=== PATIENT | male | born 1975 | race Caucasian/White ===

== ENCOUNTER 2019-09-06 20:03 | Inpatient (IN) | payer MEDICARE, OTHER ==
[~2019-09-06] VITALS: Ht 175.3 cm; Wt 70.8 kg
--- NOTE | 2019-09-06 20:03 | NUR ---
BIB EMS FROM [facility] C/O SEIZURE. PER EMT, PT HAD SEIZURE X2 ENROUTE. PER REPORT, PATIENT WAS GIVEN ATIVAN 1MG PO @ 1900. TO ER BED 5, PLACED ON SEIZURE PRECAUTION. HOOKED TO MONITOR, AWAITING MD HINTON.
--- NOTE | 2019-09-06 20:20 | NUR ---
DR EMERY AT BEDSIDE
[2019-09-06 20:32] LABS: BASOPHILS # (AUTO) 0.1 /CMM (0.0-0.2); BASOPHILS % (AUTO) 1.3 % (0.0-2.0); EOSINOPHILS % (AUTO) 3.2 % (0.0-6.0); HEMATOCRIT 39 % (39-51); HEMOGLOBIN 13.5 g/dL (13.5-17.5); LYMPHOCYTES # (AUTO) 2.2 /CMM (0.8-4.8); LYMPHOCYTES % (AUTO) 30.9 % (20.0-44.0); MEAN CORPUSCULAR HGB CONC 34 g/dl (31.0-36.0); MEAN CORPUSCULAR VOLUME 97 fL (80-96); MONOCYTES # (AUTO) 0.6 /CMM (0.1-1.30); MONOCYTES % (AUTO) 8.2 % (2.0-12.0); NEUTROPHILS % (AUTO) 56.4 % (43.0-81.0); PLATELET COUNT (AUTO) 290 /CMM (150-450); RED BLOOD CELL COUNT(AUTO) 4.04 MIL/uL (4.5-6.0); WHITE BLOOD COUNT (AUTO) 7.2 K/uL (4.3-11.0)
[2019-09-06 20:39] LABS: CALCIUM, SERUM 8.4 mg/dL (8.5-10.1); CREATININE 0.9 mg/dL (0.6-1.3); POTASSIUM 3.7 mmol/L (3.5-5.1)
--- NOTE | 2019-09-06 20:44 | NUR ---
URINE SAMPLE COLLECTED VIA STRAIGHT CATHETER. SENT SAMPLE TO LAB.
[2019-09-06 20:45] LABS: ALBUMIN 3.6 g/dL (3.4-5.0); BILIRUBIN,TOTAL 0.2 mg/dL (0.2-1.0); TOTAL PROTEIN, SERUM 6.6 g/dL (6.4-8.2)
--- NOTE | 2019-09-06 20:53 | NUR ---
PT TAKEN TO RADIOLOGY VIA JIM
--- NOTE | 2019-09-06 21:26 | NUR ---
NOTED W SEIZURES THAT LASTED FOR 40SECONDS. PATIENT SAFETY PRIORITIZED, ON O2 VIA NASAL CANNULA AT 4LPM. VS TAKEN AND RECORDED. AWARE.
--- NOTE | 2019-09-06 21:43 | NUR ---
CALLED [facility], PAGED NIEVES RUIZ FOR ADMISSION
[2019-09-06] MEDS ORDERED: LEVETIRACETAM (500MG) 500 MG/5 ML VIAL IV ONE (22:06)
--- NOTE | 2019-09-06 22:13 | NUR ---
CALLED NURSING SUP FOR TELE BED
[2019-09-06] MEDS: LEVETIRACETAM (500MG) 1,000 MG in IV NS 0.9% 100 ML IV SCH (22:16)
--- NOTE | 2019-09-06 22:30 | NUR ---
SPOKE WITH VANESSA FROM [facility] AND INFORMED PT WILL BE ADMITTED
--- NOTE | 2019-09-06 22:57 | NUR ---
BED ASSIGNMENT 327-2
--- NOTE | 2019-09-06 23:09 | NUR ---
REPORT GIVEN TO TREY OF TELE UNIT
--- NOTE | 2019-09-06 23:20 | NUR ---
patient admitted to telemetry to [facility] for dx of seizures. report given earlier by ally fan from er. patient placed in room 327-2. tele placed. patient sent up by barry and transferred to bed. patient had one seizure in er and was given keppra ivpb x1 dose. patient has been having seizures for last 3 days consistantly and [facility] but patient had seizure enroute to hospital and was brought to [facility]. patient oriented to room. patient axox3 patien thas motor function to right and left arm but patient states he has hx of spianl cord injury unable to ambulate.
[2019-09-06] MEDS ORDERED: ASPI-1152 PO (23:54)
[2019-09-07] VITALS (8 sets, daily range): BP systolic 107–150; BP diastolic 59–78
[2019-09-07] MEDS ORDERED: CARB-93 PO (00:06)
[2019-09-07] MEDS ORDERED: LACO200T2 PO (00:06)
[2019-09-07] MEDS ORDERED: PRAZ1CAP5 PO (00:06)
[2019-09-07] MEDS ORDERED: AMLO5TAB4 PO (00:06)
[2019-09-07] MEDS ORDERED: GABA300C PO (00:06)
[2019-09-07] MEDS ORDERED: OXCA300T4 PO (00:06)
[2019-09-07] MEDS ORDERED: FOLI1TAB16 PO (00:06)
[2019-09-07] MEDS ORDERED: ATOR20TA PO (00:06)
[2019-09-07] MEDS ORDERED: PANT40TA2 PO (00:06)
[2019-09-07] MEDS ORDERED: FINA5TAB3 PO (00:06)
[2019-09-07] MEDS ORDERED: TRAM50TA PO (00:06)
[2019-09-07] MEDS ORDERED: ALBU18HF2 INH (00:08)
[2019-09-07] MEDS ORDERED: FERR325T23 PO (00:14)
[2019-09-07] MEDS ORDERED: SENN-168 PO (00:14)
[2019-09-07] MEDS ORDERED: DOCU100C36 PO (00:14)
--- NOTE | 2019-09-07 05:59 | NUR ---
F/U WITH DR. ROLLINS ABOUT ADMISSION ORDERS. DR. ROLLINS CONTACTED ABOUT ADMISSION ORDERS. STATES HE WILL HAVE THEM IN BEFORE 7AM. NEW ORDERS FOR DIET RECIEVED.
--- NOTE | 2019-09-07 06:00 | NUR ---
RN PM CLOSING NOTE. PATIENT IN BED RESTING COMFORTABLY. AXOX3 PATIENT DENIES PAIN. SINCE ADMISSION PATIENT HAS NOT HAD ANY SEIZURE ACTIVIY. SEIZURE PRECAUTIONS IN PLACE. SCD APPLIED TO BILAT LOWER EXTREMETIES. REPOSITINED FOR COMFORT. BED DOWN AND LOCKED BED ALLARM ACTIVE. WILL CONT TO MONITOR.
[2019-09-07] MEDS ORDERED: ACETAMINOPHEN 325 MG TABLET PO PRN (06:30)
[2019-09-07] MEDS ORDERED: ONDANSETRON HCL/PF 4 MG/2 ML VIAL IVP PRN (06:30)
[2019-09-07 07:06] LABS: BASOPHILS # (AUTO) 0.1 /CMM (0.0-0.2); BASOPHILS % (AUTO) 1.1 % (0.0-2.0); EOSINOPHILS % (AUTO) 2.7 % (0.0-6.0); HEMATOCRIT 41 % (39-51); HEMOGLOBIN 14.2 g/dL (13.5-17.5); LYMPHOCYTES # (AUTO) 1.6 /CMM (0.8-4.8); LYMPHOCYTES % (AUTO) 15.4 % (20.0-44.0); MEAN CORPUSCULAR HGB CONC 34 g/dl (31.0-36.0); MEAN CORPUSCULAR VOLUME 97 fL (80-96); MONOCYTES # (AUTO) 0.5 /CMM (0.1-1.30); MONOCYTES % (AUTO) 5.2 % (2.0-12.0); NEUTROPHILS % (AUTO) 75.6 % (43.0-81.0); PLATELET COUNT (AUTO) 285 /CMM (150-450); RED BLOOD CELL COUNT(AUTO) 4.28 MIL/uL (4.5-6.0); WHITE BLOOD COUNT (AUTO) 10.5 K/uL (4.3-11.0)
[2019-09-07 07:25] LABS: CALCIUM, SERUM 8.5 mg/dL (8.5-10.1); CREATININE 0.8 mg/dL (0.6-1.3); POTASSIUM 3.8 mmol/L (3.5-5.1)
[2019-09-07 07:30] LABS: ALBUMIN 3.3 g/dL (3.4-5.0); BILIRUBIN,TOTAL 0.2 mg/dL (0.2-1.0); MAGNESIUM 1.9 mg/dL (1.8-2.4); PHOSPHORUS 3.5 mg/dL (2.5-4.9); TOTAL PROTEIN, SERUM 6.4 g/dL (6.4-8.2)
[2019-09-07 07:31] LABS: THYROID STIMULATING HORMONE 1.666 uIU/mL (0.358-3.74)
--- NOTE | 2019-09-07 07:57 | NUR ---
MS RN OPENING NOTE PATIENT RECEIVED SLEEPING IN BED. A/O X3. PATIENT SHOWS NO SIGNS OF ACUTE DISTRESS AT THE MOMENT. PATIENT ON SEIZURE PRECAUTIONS SIDE RAILS X3 PADDED IN UPRIGHT POSITION. BED IS IN LOWEST POSITION. CALL LIGHT IS WITHIN REACH AND PATIENT IS AWARE OF HOW TO CALL FOR ASSISTANCE WHEN NEEDED. WILL CONTINUE TO MONITOR.
[2019-09-07] MEDS: GABAPENTIN 300 MG CAPSULE PO SCH ×3 (08:37→17:11)
[2019-09-07] MEDS: FERROUS SULFATE (325 MG) 325 MG/TAB TABLET PO SCH (08:37)
[2019-09-07] MEDS: PANTOPRAZOLE 40 MG TABLET.DR PO SCH (08:38)
[2019-09-07] MEDS: FOLIC ACID 1 MG TABLET PO SCH (08:39)
[2019-09-07] MEDS: CARBIDOPA/LEVODOPA 25/100 MG 1 UDTAB PO SCH ×3 (08:39→17:12)
[2019-09-07] MEDS: ASPIRIN EC 81 MG TABLET.DR PO SCH (08:40)
[2019-09-07] MEDS: TRAMADOL HCL 50 MG TABLET PO PRN ×2 (08:40→17:11)
[2019-09-07] MEDS: FINASTERIDE (5 MG) 5 MG TABLET PO SCH (08:40)
[2019-09-07] MEDS: OXCARBAZEPINE 150 MG TABLET PO SCH ×2 (08:44→21:36)
[2019-09-07] MEDS: LACOSAMIDE 50 MG TABLET PO SCH ×2 (08:44→21:36)
[2019-09-07] MEDS ORDERED: DOCUSATE SODIUM 100 MG CAPSULE PO SCH (09:00)
--- NOTE | 2019-09-07 09:00 | NUR ---
MS/RN Medications Morning medications administered, crushed with apple sauce. Will ask MD to change colace to liquid.
[2019-09-07] MEDS: LEVETIRACETAM (500MG) 1,000 MG in IV NS 0.9% 100 ML IV SCH ×2 (10:31→23:07)
[2019-09-07] MEDS ORDERED: ALBUTEROL FS 2.5 MG/3 ML VIAL.NEB NEB PRN (13:30)
[2019-09-07] MEDS: DOCUSATE SODIUM LIQ 100 MG/10 ML UDC PO SCH (17:11)
[2019-09-07] MEDS: ATORVASTATIN 10 MG TABLET PO SCH (17:14)
[2019-09-07] MEDS: PRAZOSIN HCL 1 MG CAPSULE PO SCH (17:15)
--- NOTE | 2019-09-07 18:22 | NUR ---
MS RN CLOSING NOTE PATIENT IS RESTING IN 327-1. PATIENT MOVED DUE TO NEW AIR LOSS MATTRESS. NO ACUTE DISTRESS NOTED AT THIS TIME PATIENT IS SATURATING >95% ON 3L NC. IV IS CLEAN AND PATENT. ALL DUE MEDS GIVEN AND LAST DOSE TRAMADOL GIVEN AT 1711. BED IS IN LOWEST POSITION, CALL LIGHT IS WITHIN REACH, PADDED SIDE RAILS X3 IN UPRIGHT POSITION ON SEIZURE PRECAUTIONS. NO SEIZURE ACTIVITY THIS SHIFT. STILL NEED TO OBTAIN URINE. WILL ENDORSE TO CREDIT ANALYSIS MANAGER.
--- NOTE | 2019-09-07 19:55 | NUR ---
RN NOTES RECEIVED PATIENT ASLEEP, NO ACUTE DISTRESS NOTED AT THIS TIME PATIENT IS SATURATING >95% ON 3L NC. IV IS CLEAN AND PATENT. SAFETY MEASURES IN PLACE, KEPT WARM, DRY AND COMFORTABLE, BED IS IN LOWEST POSITION, CALL LIGHT IS WITHIN REACH, PADDED SIDE RAILS X3 IN UPRIGHT POSITION ON SEIZURE PRECAUTIONS. NEED TO OBTAIN URINE. WILL INFORM PATIENT ONCE, WILL CONTINUE TO MONITOR ACCORDINGLY.
[2019-09-07] MEDS: SENNOSIDES 8.6 MG TABLET PO SCH (21:36)
[2019-09-07] MEDS ORDERED: LEVETIRACETAM (500MG) 500 MG/5 ML VIAL IV ONE (22:58)
[2019-09-08 00:05] VITALS: BP 112/60
--- NOTE | 2019-09-08 00:10 | NUR ---
RN NOTES URINE SAMPLE COLLECTED VIA STRAIGHT CATHETER. SPECIMEN SENT TO LAB.
[2019-09-08] MEDS: TRAMADOL HCL 50 MG TABLET PO PRN ×2 (00:16→13:58)
--- NOTE | 2019-09-08 00:17 | NUR ---
RN NOTES PATIENT COMPLAINTS OF BACK PAIN 5/10 ULTRAM (TRAMADOL) 50 MG GIVEN PRN ORDER FOR MODERATE PAIN. ASPIRATION PRECAUTION OBSERVED. SEIZURE PRECAUTION EMPHASIZED. WILL MONITOR ACCORDINGLY.
--- NOTE | 2019-09-08 00:40 | NUR ---
RN NOTES NOTED WITH SEIZURE ACTIVITY AROUND 0031 09/08/19. SEIZURE PRECAUTIONS EMPHASIZED. SAFETY MEASURES MAINTAINED. PLACED PATIENT ON HIS SIDE, ASPIRATION PRECAUTIONS OBSERVED. ATIVAN IV GIVEN PER MD ORDERED FOR SEIZURE ACTIVITY, VITAL SIGNS TAKEN AND RECORDED, BP 113/59, HR 87, RR 21, SATING 97%, O2 3 - 5LPM BLOOD SUGAR 109, WILL KEEP ON MONITORING.
[2019-09-08] MEDS: LORAZEPAM INJ 2 MG/ML VIAL IV PRN ×2 (01:03→18:04)
[2019-09-08 04:55] VITALS: BP 113/59
--- NOTE | 2019-09-08 06:50 | NUR ---
RN NOTES ALL NEEDS ATTENDED AND MET, ABLE TO REST AND SLEPT AT INTERVALS, NO SEIZURE EPISODE AFTER THE FIRST SEIZURE ACTIVITY.SAFETY MEASURES IN PLACE. TELE READS SINUS RHYTHM. WILL ENDORSE TO AM NURSE FOR CONTINUITY OF CARE.
[2019-09-08 07:08] LABS: BASOPHILS # (AUTO) 0.1 /CMM (0.0-0.2); BASOPHILS % (AUTO) 0.7 % (0.0-2.0); HEMATOCRIT 41 % (39-51); HEMOGLOBIN 13.8 g/dL (13.5-17.5); LYMPHOCYTES # (AUTO) 2.1 /CMM (0.8-4.8); LYMPHOCYTES % (AUTO) 20.7 % (20.0-44.0); MEAN CORPUSCULAR HGB CONC 34 g/dl (31.0-36.0); MEAN CORPUSCULAR VOLUME 97 fL (80-96); MONOCYTES # (AUTO) 0.5 /CMM (0.1-1.30); MONOCYTES % (AUTO) 5.1 % (2.0-12.0); NEUTROPHILS # (AUTO) 7.2 /CMM (1.8-8.9); NEUTROPHILS % (AUTO) 70.5 % (43.0-81.0); PLATELET COUNT (AUTO) 269 /CMM (150-450); RED BLOOD CELL COUNT(AUTO) 4.17 MIL/uL (4.5-6.0); WHITE BLOOD COUNT (AUTO) 10.2 K/uL (4.3-11.0)
[2019-09-08 07:11] LABS: CALCIUM, SERUM 8.5 mg/dL (8.5-10.1); CREATININE 0.8 mg/dL (0.6-1.3); POTASSIUM 4.1 mmol/L (3.5-5.1)
--- NOTE | 2019-09-08 07:38 | NUR ---
FARMER AND GRAZIER OPENING NOTE PATIENT RECEIVED SLEEPING IN BED A/O X3. SHOWING NO SIGNS OF ACUTE DISTRESS OR SOB AND SATURATING AT 99% 3L NC. IV ON RIGHT HAND IS CLEAN AND PATENT. PRODUCT SALES REPRESENTATIVE NURSE REPORTED PATIENT HAD SEIZURE FROM [id number]. WILL CONTINUE TO MONITOR. BED IS IN LOWEST POSITION, SIDE RAILS X2 PADDED IN UPRIGHT POSITION. PATIENT IS ON SEIZURE PRECAUTIONS.
[2019-09-08 08:00] VITALS: BP_SYST 119; BP_SYST 96; BP_DIAS 62; BP_DIAS 67
[2019-09-08] MEDS: DOCUSATE SODIUM LIQ 100 MG/10 ML UDC PO SCH ×2 (08:37→16:46)
[2019-09-08] MEDS: CARBIDOPA/LEVODOPA 25/100 MG 1 UDTAB PO SCH ×3 (08:37→16:46)
[2019-09-08] MEDS: ASPIRIN EC 81 MG TABLET.DR PO SCH (08:37)
[2019-09-08] MEDS: FERROUS SULFATE (325 MG) 325 MG/TAB TABLET PO SCH (08:37)
[2019-09-08] MEDS: OXCARBAZEPINE 150 MG TABLET PO SCH ×2 (08:38→23:31)
[2019-09-08] MEDS: FOLIC ACID 1 MG TABLET PO SCH (08:38)
[2019-09-08] MEDS: FINASTERIDE (5 MG) 5 MG TABLET PO SCH (08:38)
[2019-09-08] MEDS: GABAPENTIN 300 MG CAPSULE PO SCH ×3 (08:38→16:47)
[2019-09-08] MEDS: PANTOPRAZOLE 40 MG TABLET.DR PO SCH (08:45)
[2019-09-08 09:26] VITALS: BP 96/62
[2019-09-08] MEDS ORDERED: LEVETIRACETAM SOL (5 ML) 100 MG/ML UDC PO SCH ×3 (10:00→21:00)
[2019-09-08] MEDS ORDERED: LEVETIRACETAM (500MG) 1,000 MG in IV NS 0.9% 100 ML IV ONE (10:00)
[2019-09-08] MEDS: LACOSAMIDE 50 MG TABLET PO SCH ×2 (10:16→23:32)
[2019-09-08] MEDS ORDERED: ACET-868 PO (14:01)
[2019-09-08] MEDS ORDERED: LORA2VIA11 IM (14:01)
[2019-09-08] MEDS ORDERED: ONDA4TAB5 PO (14:01)
[2019-09-08] MEDS ORDERED: QUET200T PO (14:01)
[2019-09-08] MEDS ORDERED: BISA10SU11 RC (14:01)
[2019-09-08] MEDS ORDERED: NA P133E RC (14:01)
[2019-09-08] MEDS ORDERED: ESCI10TA PO (14:01)
[2019-09-08] MEDS ORDERED: MAGN400O6 PO (14:01)
[2019-09-08] MEDS ORDERED: HYDR-4384 PO (14:01)
[2019-09-08] MEDS ORDERED: MINERAL OIL 133 ML (PYXIS) 1 EA ENEMA RC PRN (14:30)
[2019-09-08] MEDS ORDERED: BISACODYL SUPP (10 MG) 10 MG/SUPP.RECT SUPP.RECT RC PRN (14:30)
[2019-09-08] MEDS ORDERED: MAGNESIUM HYDROXIDE 30 ML UDC PO PRN (14:30)
[2019-09-08] MEDS: ESCITALOPRAM OXALATE (10 MG) 10 MG TABLET PO SCH (14:43)
[2019-09-08 16:00] VITALS: BP 119/67
[2019-09-08] MEDS: HYDROCODONE/APAP 5/325MG 1 EACH TABLET PO PRN (16:46)
[2019-09-08] MEDS: QUETIAPINE FUMARATE 100 MG TABLET PO SCH (16:47)
[2019-09-08] MEDS: ATORVASTATIN 10 MG TABLET PO SCH (17:08)
[2019-09-08] MEDS: PRAZOSIN HCL 1 MG CAPSULE PO SCH (17:09)
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
--- NOTE | 2019-09-08 18:04 | NUR ---
PT WAS TELLING THE SECURITY THAT THE 4 MALE STAFF WERE HURTING HIM,STRIPPING HIM NAKED. PT STARTED HAVING SEIZURE LASTING FOR 4 MINS.WITH PADDED SIDERAILS AND CLOSELY MONITORED FOR SAFETY.4 MALE STAFF AND THE SECURITY STILL AT THE BEDSIDE.ATIVAN 1 MG IM GIVEN. PT CALMED DOWN AND WANTS TO EAT.EXPLAINED THAT HE CAN'T EAT DUE TO RISK OF ASPIRATING. WE CAN GIVE HIM SMALL ICE CHIPS BUT HE REFUSED.KEPT PT CLEAN AND DRY AND PLACED A NEW IV H/L TO LT AC.
--- NOTE | 2019-09-08 18:15 | NUR ---
PAGED DR ARMENTA AND AWAITING TO RETURN CALL.
--- NOTE | 2019-09-08 18:36 | NUR ---
DR ARMENTA RETURNED CALL AND MADE AWARE OF THE SEIZURE AND THE FAKE FALL INCIDENT.WITH NO INJURY NOTED.PT PROTECTED HIS FACE WITH HIS ARM FROM THE FALL. WITH ORDER FOR PSYCH EVAL.CALLED GPS AND SPOKE TO AYALA STATING THAT DR MEDINA HASN'T MADE ROUNDS YET FOR THIS EVENING.FAXED PT'S FACE SHEET AND REQUESTED FOR PSYCH CONSULT.
--- NOTE | 2019-09-08 20:00 | NUR ---
FOREST EXAMINER NOTES PATIENT AWAKE IN BED WITH NO DISTRESS NOTED. CALL LIGHT WITHIN REACH. PATIENT STATED HE WAS NOT HAPPY WITH THE STAFF OR DOCTORS AND STATED HE FIRED THE DAY SHIFT , RN , ASSEMBLER ENGINE. PATIENT REQUESTING TO BE DISCHARGED TO [facility] OR WILL SIGN AMA. PATIENT STATES HE HAS THE RIGHT TO PICK HIS DOCTORS AND NURSES. REINSTRUCTED PATIENT ON CURRENT POC. PATIENT THEN DEMANDED TO GO TO SMOKING AREA TO SMOKE A CIGARETTE, EXPLAINED TO PATIENT PER HOSPITAL POLICY HE WILL NEED TO BE ACCOMPANIED BY HIS ASSIGNED ASSEMBLER ENGINE BUT WILL NEED TO WAIT BECAUSE SHE IS CURRENTLY ASSISTING ANOTHER PATIENT. PATIENT THEN STATED "WELL IF I CAN'T GO NOW, I'M GOING TO FALL OUT OF MY BED." EXPLANATION OF RISKS/BENEFITS GIVEN. CHARGE NURSE MADE AWARE. PATIENT WITH NO C/O PAIN OR DISCOMFORT. PERIPHERAL LINE INTACT AND PATENT. BED IN LOW LOCK SETTING. BED ALARM ON AND FUNCTIONING PROPERLY. ROOM FREE OF CLUTTER AND BELONGINGS KEPT NEAR BEDSIDE. WILL CONTINUE TO MONITOR.
--- NOTE | 2019-09-08 21:00 | NUR ---
PATIENT BACK FROM SMOKING AREA, ASSISTED BY SECURITY AND ASSIGNED STORY EDITOR. PATIENT REFUSED TO GO BACK TO BED. PATIENT STATED IF HE WAS GIVEN SNACKS AND JUICE, HE WOULD BE COMPLIANT AND GO BACK TO BED. SNACKS AND JUICE GIVEN BUT PATIENT STILL REFUSED ALL MEDS DESPITE CONTINUED EXPLANATION OF RISKS/BENEFITS. PATIENT STATED HE HAD THE RIGHT TO REFUSE HIS CARE AND HAD THE RIGHT TO SIT IN HIT WHEELCHAIR. PATIENT RIGHTS WERE ACKNOWLEDGED BUT WAS ASKED TO STOP YELLING IN HALLWAYS. PATIENT BEGAN TO ESCALATE. SECURITY WAS CALLED TO UNIT BUT PATIENT STILL REFUSED TO CALM DOWN OR GO BACK TO HIS ROOM. PATIENT CURRENTLY AT STATION, SCREAMING AT STAFF ABOUT GOING BACK OUT TO SMOKE OR HE WILL HAVE ANOTHER SEIZURE. PATIENT AT STATION FOR CONTINUED MONITORING. Addendum: 09/09/19 at 0105 by ELIDA ADAME RN PATIENT CONTINUES TO YELL AT STATION, DEMANDING TO SIGN AMA. PATIENT SAID HE WILL WHEEL HIMSELF TO [facility].
--- NOTE | 2019-09-08 21:47 | NUR ---
PATIENT IN HALLWAY CURSING AND SCREAMING AT STAFF, REFUSING ALL NURSING CARE, AND MEDS. SPOKE WITH DR. ROLLINS WITH ORDER FOR PET TEAM EVAL.
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
--- NOTE | 2019-09-08 23:13 | NUR ---
WITH ORDER FOR ATIVAN 1MG IV X1 DOSE GIVEN FROM DR. MANJARREZ. PATIENT TOLERATED WELL. WILL CONTINUE TO MONITOR FOR EFFECTIVENESS
[2019-09-08] MEDS ORDERED: LORAZEPAM INJ 2 MG/ML VIAL IV ONE (23:30)
[2019-09-08] MEDS: SENNOSIDES 8.6 MG TABLET PO SCH (23:32)
[2019-09-09] VITALS: BP 107/62
[2019-09-09] MEDS ORDERED: LEVETIRACETAM (500MG) 1,500 MG in IV NS 0.9% 100 ML IV ONE ×2
--- NOTE | 2019-09-09 | NUR ---
PATIENT REFUSED PO KEPPRA AND ONLY WILLING TO TAKE IV DOSE. DR. ROLLINS MADE AWARE, KEPPRA 1500MG PO CHANGED TO IV. ORDER VERIFIED, NOTED, AND CARRIED OUT.
[2019-09-09] MEDS ORDERED: LEVETIRACETAM (500MG) 500 MG/5 ML VIAL IV ONE ×2 (01:20)
--- NOTE | 2019-09-09 06:36 | NUR ---
PATHOLOGY LAB TECHNICIAN NOTES PATIENT ASLEEP IN BED WITH NO DISTRESS NOTED. CALL LIGHT WITHIN REACH. PERIPHERAL LINE INTACT AND PATENT. NO FURTHER BEHAVIORAL PROBLEMS NOTED DURING SHIFT. NO C/O PAIN OR DISCOMFORT. NO EPISODES OF SEIZURE NOTED DURING SHIFT. BED IN LOW LOCK SETTING. ROOM FREE OF CLUTTER AND BELONGINGS KEPT NEAR BEDSIDE. BED ALARM ON AND FUNCTIONING PROPERLY. WILL ENDORSE TO ONCOMING SHIFT.
--- NOTE | 2019-09-09 07:45 | NUR ---
Tele/RN - AM Assessment Patient in bed awake, A/O x 4, denies pain at this time, on oxygen at 2lpm via NC, afebrile, no seizure activity noted, uncooperative with care and treatment, refused cardiac monitoring, EEG. Seen by Dr. Fraser (psych) for aggressive behavior and history of Schizo with no new order at this time. Saline lock on the LAC is patent, intact, with no signs of infiltration. Fall, aspiration and seizure precautions maintained. All needs attended. Will continue with current plan of care.
[2019-09-09] MEDS: PANTOPRAZOLE 40 MG TABLET.DR PO SCH (07:46)
[2019-09-09] MEDS: HYDROCODONE/APAP 5/325MG 1 EACH TABLET PO PRN (08:21)
[2019-09-09] MEDS: FERROUS SULFATE (325 MG) 325 MG/TAB TABLET PO SCH (08:21)
[2019-09-09] MEDS: GABAPENTIN 300 MG CAPSULE PO SCH ×2 (08:21→12:24)
[2019-09-09] MEDS: FOLIC ACID 1 MG TABLET PO SCH (08:21)
[2019-09-09] MEDS: QUETIAPINE FUMARATE 100 MG TABLET PO SCH (08:21)
[2019-09-09] MEDS: FINASTERIDE (5 MG) 5 MG TABLET PO SCH (08:21)
[2019-09-09] MEDS: ASPIRIN EC 81 MG TABLET.DR PO SCH (08:21)
[2019-09-09] MEDS: OXCARBAZEPINE 150 MG TABLET PO SCH (08:21)
[2019-09-09] MEDS: CARBIDOPA/LEVODOPA 25/100 MG 1 UDTAB PO SCH ×2 (08:21→12:24)
[2019-09-09] MEDS: LACOSAMIDE 50 MG TABLET PO SCH (08:22)
[2019-09-09] MEDS: ESCITALOPRAM OXALATE (10 MG) 10 MG TABLET PO SCH (08:22)
[2019-09-09] MEDS: DOCUSATE SODIUM LIQ 100 MG/10 ML UDC PO SCH (08:22)
[2019-09-09] MEDS ORDERED: LORAZEPAM INJ 2 MG/ML VIAL IV PRN (09:00)
[2019-09-09] MEDS ORDERED: LEVETIRACETAM (500MG) 1,500 MG in IV NS 0.9% 100 ML IV SCH (09:00)
[2019-09-09] MEDS: TRAMADOL HCL 50 MG TABLET PO PRN (10:57)
[2019-09-09] MEDS ORDERED: LEVE500T20 PO (11:53)
[2019-09-09 14:21] LABS: BASOPHILS % (AUTO) 0.4 % (0.0-2.0); EOSINOPHILS % (AUTO) 2.5 % (0.0-6.0); HEMATOCRIT 43 % (39-51); HEMOGLOBIN 14.8 g/dL (13.5-17.5); LYMPHOCYTES # (AUTO) 0.6 /CMM (0.8-4.8); LYMPHOCYTES % (AUTO) 7.4 % (20.0-44.0); MEAN CORPUSCULAR HGB CONC 34 g/dl (31.0-36.0); MEAN CORPUSCULAR VOLUME 97 fL (80-96); MONOCYTES # (AUTO) 0.4 /CMM (0.1-1.30); MONOCYTES % (AUTO) 4.6 % (2.0-12.0); NEUTROPHILS # (AUTO) 7.4 /CMM (1.8-8.9); NEUTROPHILS % (AUTO) 85.1 % (43.0-81.0); PLATELET COUNT (AUTO) 255 /CMM (150-450); RED BLOOD CELL COUNT(AUTO) 4.47 MIL/uL (4.5-6.0); WHITE BLOOD COUNT (AUTO) 8.7 K/uL (4.3-11.0)
[2019-09-09 14:36] LABS: CALCIUM, SERUM 8.3 mg/dL (8.5-10.1); CREATININE 0.8 mg/dL (0.6-1.3); POTASSIUM 3.7 mmol/L (3.5-5.1)
--- NOTE | 2019-09-09 16:10 | NUR ---
Tele/RN - Discharge Patient feeling better, A/O x 4, calm, cooperative, discharged to [facility] in stable condition. Reviewed discharge instructions with ANSON Chung ([phone]) and she verbalized full understanding and all questions answered to her satisfaction. All belongings with patient and he deny any missing items. VSS, denies pain, no seizure activity this shift, afebrile, no apparent distress seen. No fall/injury during hospital stay. Patient refused discharge photo, skin is intact. Heplock removed on the LAC with catheter tip intact, no redness, no swelling at the site. Discharge papers sent with ambulance crew. Endorsed accordingly.
== END 2019-09-09 16:00 | DRG 101 ==
LOC: ER 20:11 → TELE 23:03 → MED 09-07 16:06 → TELE 09-07 20:33
PROVIDERS: ADMIT Family Medicine; ATTEND Internal Medicine
DX: R56.9 Unspecified convulsions (principal); I69.351 Hemiplegia and hemiparesis following cerebral infarction affecting right dominant side; J44.9 Chronic obstructive pulmonary disease, unspecified; G20 Parkinson's disease; I25.10 Atherosclerotic heart disease of native coronary artery without angina pectoris; F17.210 Nicotine dependence, cigarettes, uncomplicated; F25.9 Schizoaffective disorder, unspecified; I10 Essential (primary) hypertension; K21.9 Gastro-esophageal reflux disease without esophagitis; Z66 Do not resuscitate; Z79.82 Long term (current) use of aspirin
CPT/HCPCS: 36415; 70450-TC; 71045-TC; 80048-TC; 80053-TC; 80061-TC; 80076-TC; 80177; 80305; 82542; 82962-TC; 83735-TC; 84100-TC; 84443-TC; 85025-TC; 87081-TC; 97112-TC; 97530-TC; 97535-TC; G0378; J1953; J2060; J7030; J7050

== ENCOUNTER 2019-09-14 22:04 | Inpatient (IN) | payer MEDICARE, OTHER ==
[~2019-09-14] VITALS: Ht 167.6 cm; Wt 78.9 kg
[~2019-09-14 22:04] MED LIST: ACET-868 PO; ALBU18HF2 INH; AMLO5TAB4 PO; ASPI-1152 PO; ATOR20TA PO; BISA10SU11 RC; CARB-93 PO; DOCU100C36 PO; ESCI10TA PO; FERR325T23 PO; FINA5TAB3 PO; FOLI1TAB16 PO; GABA300C PO; HYDR-4384 PO; LACO200T2 PO; LEVE500T20 PO; LORA2VIA11 IM; MAGN400O6 PO; NA P133E RC; ONDA4TAB5 PO; OXCA300T4 PO; PANT40TA2 PO; PRAZ1CAP5 PO; QUET200T PO; SENN-168 PO; TRAM50TA PO
[2019-09-14] MEDS ORDERED: LORAZEPAM INJ 2 MG/ML VIAL ONE (22:06)
--- NOTE | 2019-09-14 22:14 | NUR ---
"BIBPA. C/O "PER PA: ON ROUTE TO [facility]. PT HAD SEIZURE" PT RESPONSIVE TO PAIN. VSS AT THIS TIME." PT ON MONITOR, -SOB NOTED, VSS, PENDING MD HINTON
[2019-09-14] MEDS ORDERED: LEVETIRACETAM (500MG) 500 MG/5 ML VIAL IV ONE (22:24)
[2019-09-14] MEDS ORDERED: LORAZEPAM INJ 2 MG/ML VIAL IV ONE (22:30)
[2019-09-14 22:32] LABS: BASOPHILS # (AUTO) 0.1 /CMM (0.0-0.2); BASOPHILS % (AUTO) 1.2 % (0.0-2.0); EOSINOPHILS % (AUTO) 3.6 % (0.0-6.0); HEMATOCRIT 43 % (39-51); HEMOGLOBIN 14.6 g/dL (13.5-17.5); LYMPHOCYTES # (AUTO) 2.6 /CMM (0.8-4.8); LYMPHOCYTES % (AUTO) 37.3 % (20.0-44.0); MEAN CORPUSCULAR HGB CONC 34 g/dl (31.0-36.0); MEAN CORPUSCULAR VOLUME 99 fL (80-96); MONOCYTES # (AUTO) 0.6 /CMM (0.1-1.30); MONOCYTES % (AUTO) 8.4 % (2.0-12.0); NEUTROPHILS # (AUTO) 3.4 /CMM (1.8-8.9); NEUTROPHILS % (AUTO) 49.5 % (43.0-81.0); PLATELET COUNT (AUTO) 288 /CMM (150-450); RED BLOOD CELL COUNT(AUTO) 4.37 MIL/uL (4.5-6.0); WHITE BLOOD COUNT (AUTO) 6.9 K/uL (4.3-11.0)
[2019-09-14] MEDS: LEVETIRACETAM (500MG) 1,000 MG in IV NS 0.9% 100 ML IV ONE ×2 (22:40→23:02)
[2019-09-14 22:48] LABS: CALCIUM, SERUM 8.8 mg/dL (8.5-10.1); CREATININE 1.1 mg/dL (0.6-1.3); POTASSIUM 3.6 mmol/L (3.5-5.1)
--- NOTE | 2019-09-14 22:54 | NUR ---
PT MORE ALERT AND AWAKE NOW, RESPONDS TO YES AND NO QUESTIONS, VSS
--- NOTE | 2019-09-14 23:19 | NUR ---
CALLED HOUSE SUP FOR TELE BED
[2019-09-14] MEDS ORDERED: TEMAZEPAM 15 MG CAPSULE PO PRN (23:30)
[2019-09-14] MEDS ORDERED: MORPHINE SULFATE INJ 2 MG/ML DISP.SYRIN IV PRN (23:30)
[2019-09-14] MEDS ORDERED: MAG HYDROX/AL HYDROX/SIMETH 30 ML UDC PO PRN (23:30)
[2019-09-14] MEDS ORDERED: ACETAMINOPHEN 325 MG TABLET PO PRN (23:30)
[2019-09-14] MEDS ORDERED: LORAZEPAM INJ 2 MG/ML VIAL IV PRN (23:30)
[2019-09-14] MEDS ORDERED: MAGNESIUM HYDROXIDE 30 ML UDC PO PRN (23:30)
[2019-09-14] MEDS ORDERED: ONDANSETRON HCL/PF 4 MG/2 ML VIAL IVP PRN (23:30)
--- NOTE | 2019-09-14 23:39 | NUR ---
BED ASSIGNMENT 118-2
[2019-09-15] VITALS (7 sets, daily range): BP systolic 90–113; BP diastolic 48–64
--- NOTE | 2019-09-15 00:05 | NUR ---
RN NOTES, ENDORSED PATIENT INSTABLE CONDITION TO WADE TORRES FOR CONTINUATION OF CARE, NO EPISODES OF SEIZURE, SOB/ACUTE DISTRESS NOTED.
--- NOTE | 2019-09-15 00:52 | NUR ---
REPORT GIVEN TO MARIA C GRIGGS FOR CLIFF; PT TRANSPORTED TO 1ST FLOOR VIA ACLS PROTOCOL
--- NOTE | 2019-09-15 01:00 | NUR ---
SPIRAL BINDERBOX BLANK MACHINE OPERATOR NOTES, RECEIVED PATIENT @ 0045 FROM ER DEPARTMENT VIA STRETCHER IN COMPANY OF 2 NURSES, UNDER MEDICAL SERVICE OF SONNY CORDERO, WITH ADMITTING DX SEIZURE, PATIENT RESPOND TO NAME, A/O TO SELF, BREATHING EVEN AND UNLABORED, NO SOB/ACUTE DISTRESS NOTED AT THIS TIME, ATTACHED TO TELE MONITOR AND HR IN THE 60S AT THIS TIME, AFEBRILE, SKIN INTACT, REDNESS NOTED IN SACRUM AREA, SEIZURE PRECAUTIONS, WITH S/R OF BED PADDED, ALL SAFETY MEASURES IN PLACED, CALL LIGHT W/I REACH, VS 95/57, 62, 98% @2LPM VIA NC, 20, 97.5, 0/10, WILL CONTINUE TO MONITOR CLOSELY.
--- NOTE | 2019-09-15 07:00 | NUR ---
UPS DRIVER NOTES, PATIENT IN BED ASLEEP BUT EASILY AROUSES TO VERBAL STIMULI, BREATHING EVEN AND UNLABORED, NO SOB/ACUTE DISTRESS NOTED, NO SIGNIFICANT CHANGE IN CONDITION THE REST OF THE NIGHT, NO EPISODES OF SEIZURES, ON SEIZURES PRECAUTIONS WITH PADDED S/R OF THE BED, WILL ENDORSE CONTINUITY OF CARE TO ONCOMING NURSE.
[2019-09-15 07:01] LABS: BASOPHILS % (AUTO) 0.4 % (0.0-2.0); EOSINOPHILS % (AUTO) 2.3 % (0.0-6.0); HEMATOCRIT 42 % (39-51); HEMOGLOBIN 14.1 g/dL (13.5-17.5); LYMPHOCYTES # (AUTO) 1.8 /CMM (0.8-4.8); LYMPHOCYTES % (AUTO) 16.3 % (20.0-44.0); MEAN CORPUSCULAR HGB CONC 34 g/dl (31.0-36.0); MEAN CORPUSCULAR VOLUME 96 fL (80-96); MONOCYTES # (AUTO) 0.6 /CMM (0.1-1.30); MONOCYTES % (AUTO) 5.3 % (2.0-12.0); NEUTROPHILS # (AUTO) 8.2 /CMM (1.8-8.9); NEUTROPHILS % (AUTO) 75.7 % (43.0-81.0); PLATELET COUNT (AUTO) 268 /CMM (150-450); RED BLOOD CELL COUNT(AUTO) 4.31 MIL/uL (4.5-6.0); WHITE BLOOD COUNT (AUTO) 10.9 K/uL (4.3-11.0)
--- NOTE | 2019-09-15 07:39 | NUR ---
JEWEL BEARING DRILLER OPENING NOTES RECEIVED PT LYING ON BED,ALERT/ORIENTED WITH ANXIETY.ON TELE HR IS 77 WITH NSR.ON ROOM AIR,TOLERATING WELL.NO SOB AND ACUTE DISTRESS NOTED.IV LINE IS ON LEFT AC G18,SL.SITE IS CLEAN,DRY AND INTACT.NO INFILTRATION NOTED.BED IS IN LOW POSITION AND LOCKED,CALL LIGHT IS WITHIN REACH.WILL CONTINUE TO MONITOR THE PT CLOSELY.
[2019-09-15] MEDS ORDERED: LACT-58 PO (07:41)
[2019-09-15] MEDS ORDERED: ONDA4VIA52 IM (07:41)
[2019-09-15] MEDS ORDERED: HYDR50CA PO (07:41)
[2019-09-15] MEDS ORDERED: LEVE250T2 PO (07:41)
[2019-09-15] MEDS ORDERED: MELA3TAB PO (07:41)
[2019-09-15 07:42] LABS: CALCIUM, SERUM 8.5 mg/dL (8.5-10.1); CREATININE 0.8 mg/dL (0.6-1.3); MAGNESIUM 1.9 mg/dL (1.8-2.4); PHOSPHORUS 3.6 mg/dL (2.5-4.9); POTASSIUM 3.9 mmol/L (3.5-5.1)
[2019-09-15] MEDS: IV NS 0.9% 1,000 ML IV PRN ×2 (08:09→23:57)
[2019-09-15] MEDS ORDERED: LEVETIRACETAM (500MG) 1,000 MG in IV NS 0.9% 100 ML IV SCH (09:00)
[2019-09-15] MEDS ORDERED: hydrOXYzine PAMOATE 25 MG CAPSULE PO PRN (14:00)
[2019-09-15] MEDS ORDERED: LACOSAMIDE ORAL SOLN 50 MG/5 ML UDC PO SCH (14:00)
[2019-09-15] MEDS ORDERED: BISACODYL SUPP (10 MG) 10 MG/SUPP.RECT SUPP.RECT RC PRN (14:00)
[2019-09-15] MEDS: DOCUSATE SODIUM 100 MG CAPSULE PO SCH (16:18)
[2019-09-15] MEDS: CARBIDOPA/LEVODOPA 25/100 MG 1 UDTAB PO SCH (16:18)
[2019-09-15] MEDS: GABAPENTIN 300 MG CAPSULE PO SCH (16:18)
[2019-09-15] MEDS: HYDROCODONE/APAP 5/325MG 1 EACH TABLET PO PRN (16:23)
[2019-09-15] MEDS ORDERED: OXCARBAZEPINE 150 MG TABLET PO SCH ×2 (17:00)
[2019-09-15] MEDS ORDERED: QUETIAPINE FUMARATE 100 MG TABLET PO SCH ×2 (17:00)
[2019-09-15] MEDS: PRAZOSIN HCL 1 MG CAPSULE PO SCH (17:53)
--- NOTE | 2019-09-15 18:33 | NUR ---
MINERAL TECHNOLOGIST CLOSING NOTES PT IS LYING ON BED WITH NC 2LPM O2,SATURATING WELL.RESPIRATION IS EVEN AND NONLABORED.NO SIGNIFICANT CHANGES NOTED IN THE SHIFT.IV FLUID IS RUNNING.WILL ENDORSE TO MILK ROUTE SUPERVISOR RN FOR CLIFF.
--- NOTE | 2019-09-15 19:40 | NUR ---
SENIOR PRIVATE CLIENT ADVISOR NOTES, RECEIVED PATIENT IN TOBY AWAKE, A/O ABLE TO VERBALIZED NEEDS AND CONCERNS, BREATHING EVEN AND UNLABORED, NO SOB/ACUTE DISTRESS NOTED AT THIS TIME, SEIZURE PRECAUTIONS, WITH S/R OF BED PADDED FOR PREVENTION OF INJURY, ALL SAFETY MEASURES IN PLACED, CALL LIGHT W/I REACH, WILL CONTINUE TO MONITOR CLOSELY.
[2019-09-15] MEDS: LEVETIRACETAM (500MG) 1,500 MG in IV NS 0.9% 100 ML IV SCH (21:20)
[2019-09-15] MEDS: LACOSAMIDE 50 MG TABLET PO SCH (21:29)
[2019-09-15] MEDS: ATORVASTATIN 10 MG TABLET PO SCH (21:31)
[2019-09-15] MEDS: SENNOSIDES 8.6 MG TABLET PO SCH (21:32)
[2019-09-16] VITALS: BP 105/65
[2019-09-16] MEDS: HYDROCODONE/APAP 5/325MG 1 EACH TABLET PO PRN ×2 (03:50→09:12)
[2019-09-16 04:00] VITALS: BP 112/69
--- NOTE | 2019-09-16 07:25 | NUR ---
TELE/RN OPENING NOTES RECEIVED PATIENT IN BED AWAKE AND ABLE TO MAKE NEEDS KNOWN. NO PAIN OR ACUTE DISTRESS AT THIS TIME. RESPIRATION EVEN AND UNLABORED. SKIN IS DRY WARM TO TOUCH. ON TELE MONITOR HR IS AROUND 80'S WITH NSR. ON ROOM AIR,TOLERATING WELL. IV SITES INTACT AND PATENT. FLUSHING WELL. NO INFILTRATION NOTED. ALL NEEDS ANTICIPATED. CALL LIGHT WITHIN REACHED. SAFETY MAINTAINED. BED LOCKED AND IN LOWEST POSITION. PLAN OF CARE DISCUSSED WITH PATIENT. WILL CONTINUE TO MONITOR CLOSELY.
[2019-09-16 08:00] VITALS: BP 117/73
[2019-09-16] MEDS: PANTOPRAZOLE 40 MG TABLET.DR PO SCH (08:13)
[2019-09-16] MEDS: LEVETIRACETAM (500MG) 1,500 MG in IV NS 0.9% 100 ML IV SCH ×2 (09:00→21:20)
[2019-09-16] MEDS ORDERED: ESCITALOPRAM OXALATE (10 MG) 10 MG TABLET PO SCH (09:00)
[2019-09-16] MEDS: DOCUSATE SODIUM 100 MG CAPSULE PO SCH ×2 (09:03→17:21)
[2019-09-16] MEDS: FERROUS SULFATE (325 MG) 325 MG/TAB TABLET PO SCH (09:03)
[2019-09-16] MEDS: CARBIDOPA/LEVODOPA 25/100 MG 1 UDTAB PO SCH ×3 (09:03→17:21)
[2019-09-16] MEDS: FINASTERIDE (5 MG) 5 MG TABLET PO SCH (09:03)
[2019-09-16] MEDS: FOLIC ACID 1 MG TABLET PO SCH (09:03)
[2019-09-16] MEDS: ASPIRIN EC 81 MG TABLET.DR PO SCH (09:03)
[2019-09-16] MEDS: GABAPENTIN 300 MG CAPSULE PO SCH ×3 (09:04→17:21)
[2019-09-16] MEDS: LACOSAMIDE 50 MG TABLET PO SCH ×2 (09:04→21:20)
[2019-09-16] MEDS: AMLODIPINE BESYLATE 5 MG TABLET PO SCH (09:04)
[2019-09-16] MEDS: OXCARBAZEPINE 150 MG TABLET PO SCH ×2 (09:05→17:21)
[2019-09-16 16:00] VITALS: BP_SYST 110; BP_SYST 133; BP_DIAS 63; BP_DIAS 76
[2019-09-16] MEDS: PRAZOSIN HCL 1 MG CAPSULE PO SCH (17:22)
--- NOTE | 2019-09-16 17:24 | NUR ---
MS/RN NOTES MEDICATION MINIPRESS WAS HELD DUE TO LOW BP. PATIENT CONTINUES TO REMAIN IN STABLE CONDITION. WILL CONTINUE TO MONITOR CLOSELY.
--- NOTE | 2019-09-16 18:26 | NUR ---
MS/RN NOTES GARMENT PARTS CUTTER MACHINE WAS PERFORMING PATIENT CARE AND PATIENT SUDDENLY HAD A SEIZURE. MADE SURE THAT PATIENT WAS SAFE AND THE BED WAS FLATTENED. ORDERED ATIVAN WAS BEING PREPARED TO BE GIVEN. RAPID RESPONSE WAS ALSO CALLED TO THE UNIT.
[2019-09-16] MEDS ORDERED: LORAZEPAM INJ 2 MG/ML VIAL IV STA (18:29)
[2019-09-16 18:30] VITALS: BP 134/69
[2019-09-16] MEDS ORDERED: LORAZEPAM INJ 2 MG/ML VIAL IV PRN (18:30)
--- NOTE | 2019-09-16 18:30 | NUR ---
MS/RN NOTES ATIVAN 1MG WAS GIVEN AT THIS TIME. RAPID RESPONSE ARRIVED AT IN THE ROOM. DR. CARROLL ORDERED ANOTHER DOSE OF ATIVAN 1MG. ATIVAN WAS BEING PREPARED TO BE GIVEN AGAIN. CONTINUE TO MONITOR PATIENT.
--- NOTE | 2019-09-16 18:33 | NUR ---
MS/RN NOTES SECOND DOSE OF ATIVAN 1MG WAS GIVEN AT THIS TIME. TOTAL OF 2MG OF ATIVAN WAS GIVEN. PATIENT'S SEIZURE SUBSIDED. DR. CARROLL CONTINUES TO BE AT BEDSIDE. CONTINUE TO MONITOR PATIENT.
--- NOTE | 2019-09-16 18:40 | NUR ---
MS/RN NOTES CONTINUE TO MONITOR PATIENT AT BEDSIDE. PATIENT CONTINUES TO REMAIN IN STABLE CONDITION. SEIZURE COMPLETELY SUBSIDED. PATIENT IN BED RESTING COMFORTABLY. NO PAIN OR ACUTE DISTRESS AT THIS TIME. WILL CONTINUE TO MONITOR CLOSELY.
[2019-09-16] MEDS: IV NS 0.9% 1,000 ML IV PRN (18:46)
--- NOTE | 2019-09-16 19:40 | NUR ---
MS RN NOTES, RECEIVED PATIENT IN BED ASLEEP, BUT AROUSABLE TO VERBAL STIMULI, AT 2LPM VIA NC, SATURATING WELL, BREATHING EVEN AND UNLABORED, LEFT FA IV ACCESS PATENT AND INTACT, IVF INFUSING WELL AND PATIENT TOLERATED WELL, NO EPISODES OF SEIZURES NOTED, S/P SEIZURE TODAY BY REPORT, SAFETY MEASURES IN PLACE W/ SIDE RAILS UP AND PADDED TO PREVENT INJURY, BED LOCKED AND IN LOWEST POSITION, ALARM ON, CALL LIGHT WITHIN REACH, WILL CONTINUE TO MONITOR CLOSELY
--- NOTE | 2019-09-16 19:54 | NUR ---
MS/RN CLOSING NOTES PATIENT CONTINUES TO REMAIN IN STABLE CONDITION. PROVIDED COMFORT AND SAFETY. NO PAIN OR ACUTE DISTRESS AT THIS TIME. RESPIRATION EVEN AND UNLABORED. SKIN IS DRY WARM TO TOUCH. ALL NEEDS ANTICIPATED. CALL LIGHT WITHIN REACHED. BED LOCKED AND IN LOWEST POSITION. SAFETY MAINTAINED. WILL CONTINUE TO MONITOR. ENDORSED TO PM NURSE FOR CLIFF.
[2019-09-16 20:00] VITALS: BP 111/69
[2019-09-16] MEDS: ATORVASTATIN 10 MG TABLET PO SCH (21:21)
[2019-09-16] MEDS: SENNOSIDES 8.6 MG TABLET PO SCH (21:21)
[2019-09-17] MEDS: HYDROCODONE/APAP 5/325MG 1 EACH TABLET PO PRN ×3 (04:01→20:28)
--- NOTE | 2019-09-17 06:47 | NUR ---
MS RN NOTES, PATIENT IN BED ASLEEP, BUT AROUSABLE TO VERBAL STIMULI, AT 2LPM VIA NC, SATURATING WELL, BREATHING EVEN AND UNLABORED, LEFT FA IV ACCESS PATENT AND INTACT, IVF INFUSING WELL AND PATIENT TOLERATED WELL, NO EPISODES OF SEIZURES NOTED DURING THE NIGHT, SAFETY MEASURES IN PLACE W/ SIDE RAILS UP AND PADDED TO PREVENT INJURY, BED LOCKED AND IN LOWEST POSITION, ALARM ON, NO SIGNIFICANT CHANGE IN CONDITION DURING THE NIGHT,CALL LIGHT WITHIN REACH, WILL ENDORSED CONTINUITY OF CARE TO ONCOMING NURSE.
--- NOTE | 2019-09-17 07:18 | NUR ---
MS RN OPENING NOTE RECEIVED REPORT FROM [facility] SHIFT NURSE. PT AWAKE IN BED, ALERT AND ORIENTED X 1, ON 02 VIA NC3 L/MIN, SATURATING WELL, RESPIRATIONS EVEN AND UNLABORED, NO SIGNS OF RESPIRATORY DISTRESS NOTED. IV SITE ON LEFT FOREARM G22 INTACT, PATENT, INFUSING NS AT 75ML/HR, NO SIGNS OF INFILTRATION NOTED. BED IN LOW POSITION, LOCKED, CALL LIGHT WITHIN REACH. INTRODUCED SELF TO PT AND DISCUSSED PLAN OF CARE.
--- NOTE | 2019-09-17 07:33 | NUR ---
WOUND CARE CONSULT: PT PRESENTS WITH INCONTINENCE, BLANCHABLE REDNESS TO BUTTOCKS AND RT SIDED HEMIPLEGIA, PRESENT ON ADMISSION. RECOMMENDATIONS MADE FOR SKIN PROTECTION. DISCUSSED WITH NURSING STAFF. CURRENT ROMAN SCORE IS 13. WILL SEE PRN. HINOJOSA IN AGREEMENT WITH PLAN OF CARE. Addendum: 09/17/19 at 0734 by ZEHRA JORDAN WNDNU Amended: Links added.
[2019-09-17] MEDS: PANTOPRAZOLE 40 MG TABLET.DR PO SCH (07:34)
[2019-09-17 08:00] VITALS: BP 109/66
[2019-09-17] MEDS ORDERED: Z GUARD REMEDY 2 OZ OINT TP PRN (08:00)
[2019-09-17] MEDS: OXCARBAZEPINE 150 MG TABLET PO SCH (08:36)
[2019-09-17] MEDS: GABAPENTIN 300 MG CAPSULE PO SCH ×3 (08:37→17:15)
[2019-09-17] MEDS: FINASTERIDE (5 MG) 5 MG TABLET PO SCH (08:37)
[2019-09-17] MEDS: FOLIC ACID 1 MG TABLET PO SCH (08:37)
[2019-09-17] MEDS: CARBIDOPA/LEVODOPA 25/100 MG 1 UDTAB PO SCH ×3 (08:37→17:15)
[2019-09-17] MEDS: DOCUSATE SODIUM 100 MG CAPSULE PO SCH ×2 (08:37→17:16)
[2019-09-17] MEDS: ASPIRIN EC 81 MG TABLET.DR PO SCH (08:37)
[2019-09-17] MEDS: LACOSAMIDE 50 MG TABLET PO SCH ×2 (08:38→20:28)
[2019-09-17] MEDS: FERROUS SULFATE (325 MG) 325 MG/TAB TABLET PO SCH (08:38)
[2019-09-17] MEDS: LEVETIRACETAM (500MG) 1,500 MG in IV NS 0.9% 100 ML IV SCH (08:38)
[2019-09-17] MEDS: AMLODIPINE BESYLATE 5 MG TABLET PO SCH (08:40)
[2019-09-17] MEDS ORDERED: Z GUARD REMEDY 2 OZ OINT TP SCH (09:00)
[2019-09-17 10:00] VITALS: BP 112/70
[2019-09-17] MEDS: IV NS 0.9% 1,000 ML IV PRN (11:31)
[2019-09-17] MEDS ORDERED: OXCA150T13 PO (14:33)
[2019-09-17] MEDS ORDERED: LEVE250T2 PO (14:33)
[2019-09-17 16:00] VITALS: BP 138/88
--- NOTE | 2019-09-17 16:06 | NUR ---
GAVE TELEPHONE REPORT TO ANSON MIRANDA AT MORROW
[2019-09-17] MEDS ORDERED: OXCARBAZEPINE 150 MG TABLET PO SCH (17:00)
[2019-09-17 17:16] VITALS: BP 138/88
[2019-09-17] MEDS: PRAZOSIN HCL 1 MG CAPSULE PO SCH (17:16)
--- NOTE | 2019-09-17 19:22 | NUR ---
MS RN NOTES, RECEIVED PATIENT IN BED ASLEEP, AWAKE AT 2LPM VIA NC, SATURATING WELL, BREATHING EVEN AND UNLABORED, LEFT FA IV ACCESS PATENT AND INTACT, IVF INFUSING WELL AND PATIENT TOLERATED WELL, ASKING A WHAT TIME TRANSPORTATION IS HERE FOR HIM, PER NURSE PATIENT IS GOING TO BE DC TO [facility], NO EPISODES OF SEIZURES REPORTED, SAFETY MEASURES IN PLACE W/ SIDE RAILS UP AND PADDED TO PREVENT INJURY, BED LOCKED AND IN LOWEST POSITION, ALARM ON, CALL LIGHT WITHIN REACH, AWAITING FOR TRANSFORATION, PATIENT VERBALIZED UNDERSTANDING WITH DC INSTRUCTIONS, WILL CONTINUE TO MONITOR CLOSELY
--- NOTE | 2019-09-17 19:23 | NUR ---
ALL DISCHARGE PAPERWORK SIGNED. PT READY FOR PARLOR CHAPERONE. ENDORSED TO NOC SHIFT NURSE.
--- NOTE | 2019-09-17 20:40 | NUR ---
RN NOTES, PATIENT LEFT IN STABLE CONDITION VIA [facility], ACCOMPANIED BY 2 INFORMATION SECURITY SYSTEMS INSTRUCTOR, IV LEFT FA REMOVED, MEDICATIONS DUE GIVEN PRIOR DC, A/O X3 ABLE TO VERBALIZED NEEDS AND CONCERNS, VERBALIZED DC INSTRUCTIONS, WITH STABLE VS 98.0, 84,20, 97%, 127/70, /10, MEDICATION FOR PAIN ADMINISTERED, BREATHING EVEN AND UNLABORED, NO SOB/ACUTE DISTRESS NOTED.
--- NOTE | 2019-09-17 20:40 | NUR ---
RN NOTES, PATIENT LEFT TO [facility] IN STABLE CONDITION.
[2019-09-17] MEDS ORDERED: LEVETIRACETAM (250 MG) 250 MG TABLET PO SCH (21:00)
== END 2019-09-17 20:36 | DRG 101 ==
LOC: ER 22:06 → TELE1 23:39 → MEDSG1 09-16 10:52
PROVIDERS: ADMIT Nurse Practitioner Acute Care; ATTEND Hospitalist
DX: G40.909 Epilepsy, unspecified, not intractable, without status epilepticus (principal); D68.59 Other primary thrombophilia; I69.351 Hemiplegia and hemiparesis following cerebral infarction affecting right dominant side; G20 Parkinson's disease; F20.9 Schizophrenia, unspecified; I25.10 Atherosclerotic heart disease of native coronary artery without angina pectoris; I10 Essential (primary) hypertension; K21.9 Gastro-esophageal reflux disease without esophagitis; F17.210 Nicotine dependence, cigarettes, uncomplicated; J44.9 Chronic obstructive pulmonary disease, unspecified
CPT/HCPCS: 36415; 80048-TC; 82962-TC; 83735-TC; 84100-TC; 85025-TC; 87081-TC; G0378; J1953; J2060; J7030

== ENCOUNTER 2019-09-22 17:32 | Emergency (ER) | payer MEDICARE, OTHER ==
[~2019-09-22] VITALS: Ht 180.3 cm; Wt 80.7 kg
[~2019-09-22 17:32] MED LIST changes: -ALBU18HF2 INH; +HYDR50CA PO; +LACT-58 PO; +LEVE250T2 PO; -LEVE500T20 PO; +MELA3TAB63 PO; -ONDA4TAB5 PO; +ONDA4VIA52 IM; +OXCA150T13 PO; -OXCA300T4 PO; -TRAM50TA PO
--- NOTE | 2019-09-22 17:48 | NUR ---
[id number] AND [employer] FROM [facility] PSYCH FAC, EMS STATES PER STAFF "HE WANTED TO WHEEL HIS WHEELCHAIR INTO TRAFFIC", PT DENIES SI/HI. PATIENT A/OX4, BREATHING EVEN AND UNLABORED, NO SOB NOTED, NEEDS ATTENDED. CHANGED INTO GOWN, SUICIDE PRECAUTION OBSERVED.
[2019-09-22 18:28] LABS: BASOPHILS # (AUTO) 0.1 /CMM (0.0-0.2); BASOPHILS % (AUTO) 1.2 % (0.0-2.0); EOSINOPHILS % (AUTO) 2.7 % (0.0-6.0); HEMATOCRIT 43 % (39-51); HEMOGLOBIN 14.7 g/dL (13.5-17.5); LYMPHOCYTES # (AUTO) 1.7 /CMM (0.8-4.8); LYMPHOCYTES % (AUTO) 23.1 % (20.0-44.0); MEAN CORPUSCULAR HGB CONC 35 g/dl (31.0-36.0); MEAN CORPUSCULAR VOLUME 97 fL (80-96); MONOCYTES # (AUTO) 0.6 /CMM (0.1-1.30); MONOCYTES % (AUTO) 8.2 % (2.0-12.0); NEUTROPHILS # (AUTO) 4.7 /CMM (1.8-8.9); NEUTROPHILS % (AUTO) 64.8 % (43.0-81.0); PLATELET COUNT (AUTO) 266 /CMM (150-450); RED BLOOD CELL COUNT(AUTO) 4.39 MIL/uL (4.5-6.0); WHITE BLOOD COUNT (AUTO) 7.3 K/uL (4.3-11.0)
[2019-09-22] MEDS ORDERED: IV NS 0.9% 1,000 ML BAG IV ONE (18:30)
[2019-09-22 18:41] LABS: ALANINE AMINOTRANSFERASE 12 U/L (12-78); ALCOHOL, BLOOD < 3 mg/dL (0-0); ALKALINE PHOSPHATASE 82 U/L (46-116); ASPARTATE AMINOTRANSFERASE 17 U/L (15-37); BILIRUBIN,DIRECT 0.1 mg/dL (0.0-0.2); BILIRUBIN,TOTAL 0.3 mg/dL (0.2-1.0); CARBON DIOXIDE 26 mmol/L (21-32); CHLORIDE 99 mmol/L (98-107); CREATININE 0.9 mg/dL (0.6-1.3); GLUCOSE 106 mg/dL (74-106); POTASSIUM 3.9 mmol/L (3.5-5.1); SODIUM SERUM 134 mmol/L (136-145); TOTAL PROTEIN, SERUM 7.3 g/dL (6.4-8.2); UREA NITROGEN, BLOOD 9 mg/dL (7-18)
--- NOTE | 2019-09-22 19:12 | NUR ---
ENDORSED TO [place] FOR CLIFF.
[2019-09-22] MEDS ORDERED: OXCA300T15 PO (19:16)
[2019-09-22] MEDS ORDERED: LEVE500T9 PO (19:16)
--- NOTE | 2019-09-22 19:18 | NUR ---
urine retrieved, 1200mL output. Specimen sent to lab.
--- NOTE | 2019-09-22 19:49 | NUR ---
Dr. Beltran at bedside for eval
--- NOTE | 2019-09-22 19:50 | NUR ---
CALLED LAB RE: URINE SAMPLE STILL NOT RUNNING.
[2019-09-22 20:01] LABS: APPEARANCE,URINE Clear (CLEAR); BILIRUBIN,URINE Negative (NEGATIVE); BLOOD, URINE Negative Ery/uL (NEGATIVE); COLOR,URINE Yellow (YELLOW); KETONES,URINE Negative (NEGATIVE); LEUKOCYTE ESTERASE ,URINE Negative (NEGATIVE); NITRITE, URINE Negative (NEGATIVE); PH,URINE 6.5 (5.0-8.0); PROTEIN,URINE Negative (NEGATIVE); UGLUCOSE Negative (NEGATIVE); UROBILINOGEN,URINE 0.2 EU/dL (0.2)
--- NOTE | 2019-09-22 20:16 | NUR ---
Patient medically cleared, psych eval called.
--- NOTE | 2019-09-22 20:19 | NUR ---
CALLED TUYET GRIGGS, SAYS SHE IS ON THE WAY TO EVALUATE
--- NOTE | 2019-09-22 20:29 | NUR ---
Gave deysi sandwich, well tolerated.
--- NOTE | 2019-09-22 21:31 | NUR ---
PATIENT PLACED ON HOLD 2130
--- NOTE | 2019-09-22 22:03 | NUR ---
REPORT GIVEN BY TUYET AFTER EVALUATION PERFORMED ON PATIENT. REPORT TO THE RECEIVING NURSE REQUIRED BEFORE HANDOFF TO [facility] FOR TRANSPORT.
[2019-09-22 22:24] VITALS: BP 120/54
--- NOTE | 2019-09-22 22:26 | NUR ---
TRANSPORT INFO: PT GOING TO [facility], ACCEPTED BY DR KABA, YAMILEX BELL 2230, RN FOR REPORT [phone]
--- NOTE | 2019-09-22 22:27 | NUR ---
called [phone] and nurse who received call said to call back in 10 minutes because they do not have intake
--- NOTE | 2019-09-22 22:48 | NUR ---
REPORT GIVEN TO LUBNA FOR CLIFF.
--- NOTE | 2019-09-22 23:09 | NUR ---
[facility] ARRIVED TO DETAIL ASSEMBLER PATIENT FOR TRANSFER. REPORT IS GIVEN. ORIGINAL [id number] IS WITH THE STAFF ELIAN AND TONG.
== END 2019-09-22 23:12 ==
LOC: ER 17:40
DX: F29 Unspecified psychosis not due to a substance or known physiological condition (principal); G40.909 Epilepsy, unspecified, not intractable, without status epilepticus; I10 Essential (primary) hypertension; F20.9 Schizophrenia, unspecified; R53.1 Weakness; F11.10 Opioid abuse, uncomplicated; K21.9 Gastro-esophageal reflux disease without esophagitis; Z88.1 Allergy status to other antibiotic agents; Z79.899 Other long term (current) drug therapy; Z79.82 Long term (current) use of aspirin
CPT/HCPCS: 36415; 80048; 80076; 80305; 80307; 81001; 85025; 99285; J7030; 81000-TC; G0480